=== PATIENT | male | born 1980 | race Caucasian/White ===

== ENCOUNTER 2019-12-15 20:44 | Emergency (ER) | payer SELFPAY ==
[~2019-12-15] VITALS: Ht 180.3 cm; Wt 104.3 kg
[2019-12-15 20:45] VITALS: BP 135/74
--- NOTE | 2019-12-15 20:53 | NUR ---
[place] [employer] TO JESUS Garcia
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
--- NOTE | 2019-12-15 21:10 | NUR ---
DR GOLDEN EVALUATING PT
--- NOTE | 2019-12-15 21:11 | NUR ---
PT R HAND SOAKED IN SOLUTION OF NORMAL SALINE AND BETADINE.
[2019-12-15] MEDS ORDERED: NEOMYCIN/POLYMYXIN/BACITRACIN 0.9 GM/1 PKT TP ONE (21:15)
[2019-12-15] MEDS ORDERED: LIDOCAINE 2% 1000 MG/50 ML VIAL INJ ONE (21:15)
--- NOTE | 2019-12-15 21:35 | NUR ---
DR GOLDEN WITH PATIENT PERFORMING PROCEDURE.
--- NOTE | 2019-12-15 21:46 | NUR ---
PT REFUSED VACCINE PRESCRIBED. ERMD MADE AWARE
--- NOTE | 2019-12-15 21:57 | NUR ---
pt to be released back to [facility] with Officer [facility] #[id number]. ALIRIO.
[2019-12-15 21:58] VITALS: BP 135/74
== END 2019-12-15 21:59 | disposition home or self-care (01) ==
LOC: MED 20:44
DX: S61.412A Laceration without foreign body of left hand, initial encounter (principal); W18.30XA Fall on same level, unspecified, initial encounter; Y93.89 Activity, other specified; Y92.89 Other specified places as the place of occurrence of the external cause; Y99.8 Other external cause status; Z02.89 Encounter for other administrative examinations
CPT/HCPCS: 12001; 90471; 99283; J2001; 90715